=== PATIENT | female | born 1990 | race Caucasian/White ===

== ENCOUNTER 2019-04-10 00:45 | Emergency (ER) | payer OTHER ==
[~2019-04-10] VITALS: Ht 160 cm; Wt 65.3 kg
[2019-04-10 00:48] VITALS: BP 130/85
== END 2019-04-10 01:21 | disposition home or self-care (01) ==
LOC: ER 00:46
DX: S61.412A Laceration without foreign body of left hand, initial encounter (principal); F10.10 Alcohol abuse, uncomplicated; Y90.9 Presence of alcohol in blood, level not specified; W26.8XXA Contact with other sharp object(s), not elsewhere classified, initial encounter; Y93.89 Activity, other specified; Y92.89 Other specified places as the place of occurrence of the external cause; Y99.8 Other external cause status
CPT/HCPCS: 12001; 99283; A6403